=== PATIENT | male | born 1975 | race Caucasian/White ===

== ENCOUNTER 2016-11-17 18:10 | Emergency (ER) | payer OTHER ==
--- NOTE | 2016-11-17 18:52 | ED NURSING NOTES ---
Clinical Report - Nurses [facility] [place] [address] 11/17/2016 18:11 Patient: MELISA SOLIS TRIAGE Triage time 18:19. Acuity: LEVEL 4. Chief Complaint: Location of symptoms- left knee. 18:20 11/17/16. 18:20 11/17/16. Alert. SEPSIS SCREEN: Sepsis Screen. Negative (no infection suspected/documented). GAVIOTA COMA SCORE: [place] Coma Scale: 15- eyes open spontaneously (4); best verbal response- oriented x 4 (5); best motor response- obeys commands (6). --18:26 Albin Roman R.N. 18:22 11/17/16. BP: 144/96. HR: 84. RR: 16. O2 saturation: 100% on room air. Temp: 98.1 F (oral). Pain level now: 8/10. --18:26 Albin Roman R.N. Weight: 70.7 kg stated. Height/Length: 71 inches Per Patient. BMI: 21.7. --18:18 Albin Roman R.N. Medications None. --18:20 Albin Roman R.N. Medication/allergy information source: the patient. --18:26 Albin Roman R.N. Allergies Demerol. Shellfish-derived Products. --18:20 Albin Roman R.N. History Arrived by private vehicle. Historian: patient. Unaccompanied. Primary physician (ANSLEY EDMONDS). 18:20 11/17/16. An injury may have occurred. He has had moderate trouble walking. The patient has been limping when trying to walk. PAST MEDICAL HX: No history of deep vein thrombosis or peripheral neuropathy. Tetanus immunization status is not up-to-date. Immunizations not up to date. SOCIAL HX: Current every day light tobacco smoker (cigarette)- less than 1/2 a pack per day. No alcohol use or drug use. No infectious disease exposure. ABUSE ASSESSMENT: No report of abuse. FALL RISK ASSESSMENT: Fall risk assessment completed. No fall risk identified. NUTRITIONAL RISK ASSESSMENT: The nutritional risk assessment revealed no deficiencies. FUNCTIONAL ASSESSMENT: Functional assessment: no impairments noted. LEARNING NEEDS ASSESSMENT: The learning needs assessment revealed no barriers. SKIN INTEGRITY ASSESSMENT: Skin integrity risk assessment completed. No skin integrity risk identified. --18:26 Albin Roman R.N. PROBLEMS: Vertigo. Weakness. Dizziness. Headache. Gastroesophageal Reflux. Anxiety Reaction. Bipolar Disorder. Anxiety . Migraines . Gerd. Pituitary adenoma. CAD . --18:21 Albin Roman R.N. Left Knee Chronic pain. --18:25 Albin Roman R.N. The following entry was modified by Albin Roman R.N., 18:25 <<STRICKEN ENTRY-- Left Knee Chronic pain. --18:21 Albin Roman R.N. --END STRIKE>>. ADDITIONAL SURGERIES: Adenoidectomy. Cheek, lt and orbit. . Gallbladder Surgery. Jaw, lt . Tonsillectomy. Wrist. --18:21 Albin Roman R.N. Assessment 18:11/17/16. --18:26 Albin Roman R.N. Interventions 18:19 11/17/16. 18:11/17/16. ID and allergy band on patient. To treatment room. --18: Albin Roman R.N. PHYSICAL ASSESSMENT 18:11/17/16. Ambulatory to room. GENERAL / NEURO / PSYCH: Oriented X 4. Alert. Appears in pain. EXTREMITIES: Extremity pulses are within normal limits. Abnormal gait. Neuro-vascular status intact to the extremity. Left knee: tenderness. SKIN: Skin is warm and dry. --18:22 Albin Roman R.N. NURSING PROGRESS NOTES 18:11/17/16. Patient gowned. Reassurance given. Two patient identifiers checked. Call light placed in reach. Side rails up x 2. Bed placed in lowest position. Brakes of bed on. Brakes of chair on. --18:22 Albin Roman R.N. 18:11/17/16. Patient ready for evaluation- chart flagged and notification provided. --18:22 Albin Roman R.N. DISPOSITION / DISCHARGE Departure time: 19:00 Nov 17 2016. ( Heladio wrap applied, cms intact before and after procedure.). --19:00 Noman Macias R.N. 19:02 11/17/16. Condition at departure: improved. The goals identified in the patient's plan of care were met. No learning barriers present. Discharge instructions provided and reviewed with the patient. Reviewed warnings. Reviewed medication(s). Treatments reviewed. Reviewed referral to an orthopedic surgeon. Patient verbalized understanding. Written instructions provided in Upper Sorbian. The patient was discharged by the physician coding assistant. He was discharged home and accompanied by patient transportation driver. He left the Emergency Department ambulatory and via private vehicle. Sprinkling System Irrigator driving. FALL RISK ASSESSMENT: Fall risk assessment completed. No fall risk identified. --19:02 Albin Roman R.N. 19:01 11/17/16. BP: 132/79. HR: 82. RR: 14. O2 saturation: 100% on room air. Temp: 98.1 F (oral). --19:02 Albin Roman R.N. 19:02 11/17/16. Departure time: 19:02. --19:02 Albin Roman R.N. Locked/Released at 11/17/2016 19:03 by Albin Roman R.N.
--- NOTE | 2016-11-17 18:52 | ED CLINICAL REPORT ---
Clinical Report - Physicians/Mid Levels [facility] [address] [place] [place] [address] 11/17/2016 18:11 [id number] Time Seen: 18:19 Nov 17 2016. Arrived- By private vehicle. Historian- patient. HISTORY OF PRESENT ILLNESS Chief Complaint: Injury to left knee. The injury happened just prior to arrival. Occurred at home. Patient is experiencing mild pain. Patient denies injury to the head or neck. (Patient reports possible twisting injury of the last 2 days, now with pain to the left knee. Denies any history of DVT or PE. Denies fevers or chills. Has been ambulatory.). REVIEW OF SYSTEMS No tingling or skin laceration. He has no pain on weight bearing. All systems otherwise negative, except as recorded above. PAST HISTORY ( Pituitary ca dx 2011(monitoring at )). He has not had a prior injury to the same area. SOCIAL HISTORY Smoker- current status unknown. No alcohol use or drug use. ADDITIONAL NOTES The nursing notes have been reviewed. PHYSICAL EXAM Vital Signs: 11/17/2016 18:22 BP: 144/96. HR: 84. RR: 16. O2 saturation: 100%. Temp: 98.1 F. Pain level now: 8/10. Appearance: Alert. Head: Head atraumatic. ENT: Ears normal. Nose normal. Neck: Normal inspection. CVS: Normal heart rate and rhythm. Heart sounds normal. Respiratory: No respiratory distress. Breath sounds normal. No decreased air movement or accessory muscle use. Abdomen: No visible injury. Soft. Back: Normal inspection. No tenderness. Skin: Skin warm. Normal skin color. Extremities: Left thigh. No tenderness or swelling. Left knee: mild tenderness. No swelling or laceration. Left leg. No tenderness or swelling. Gait: Limping gait. Neuro, Vascular and Tendons: Vascular status intact. Motor intact. Neuro: Oriented X 3. No motor deficit. LABS, X-RAYS, AND EKG Lt Knee X-ray: (IMPRESSION: 1. Normal left knee. Electronically Final signed by:Rishabh Cleveland MD 11/17/2016 7:10:35 PM). Note - Tests: (left us vENOUS: IMPRESSION: 1. Negative venous ultrasound of the left lower extremity. Electronically Final signed by:Rishabh Cleveland MD 11/17/2016 7:09:19 PM). PROGRESS AND PROCEDURES PROCEDURES (LEFT KNEE AMANDA WRAP). Course of Care: no signs of dvt, no signs of cellulitis, no signs of distress or fx. Stable to f/u outpatient. Patient is stable. Symptoms better. Patient/family counseled. Differential Diagnosis: I considered degenerative joint disease, rheumatoid arthritis, sprain, soft tissue injury and myositis as a possible cause of lower extremity pain in this patient. This is a partial list of diagnoses considered. Disposition: Discharged. CLINICAL IMPRESSION Sprain of the medial collateral and lateral collateral ligament of the left knee. INSTRUCTIONS Apply ice. Elevate affected areas above chest level. ([facility]: [phone]). Prescription Medications: Hydrocodone/APAP 5mg / 325mg: take 1 orally every 6 hours as needed for pain. Dispense ten (10). Ibuprofen 800 mg tablets: take 1 tablet orally every 8 hours for 5 days, as needed for pain. Dispense fifteen (15). No refill. (Electronically signed by Salma Cain P.A.-C 11/17/2016 21:17)
--- NOTE | 2016-11-17 18:52 | ED CLINICAL REPORT ---
Clinical Report - Physicians/Mid Levels [facility] [address] [place] [address] 11/17/2016 18:11 [id number] Time Seen: 18:19 Nov 17 2016. Arrived- By private vehicle. Historian- patient. HISTORY OF PRESENT ILLNESS Chief Complaint: Injury to left knee. The injury happened just prior to arrival. Occurred at home. Patient is experiencing mild pain. Patient denies injury to the head or neck. (Patient reports possible twisting injury of the last 2 days, now with pain to the left knee. Denies any history of DVT or PE. Denies fevers or chills. Has been ambulatory.). REVIEW OF SYSTEMS No tingling or skin laceration. He has no pain on weight bearing. All systems otherwise negative, except as recorded above. PAST HISTORY ( Pituitary ca dx 2011(monitoring at )). He has not had a prior injury to the same area. SOCIAL HISTORY Smoker- current status unknown. No alcohol use or drug use. ADDITIONAL NOTES The nursing notes have been reviewed. PHYSICAL EXAM Vital Signs: 11/17/2016 18:22 BP: 144/96. HR: 84. RR: 16. O2 saturation: 100%. Temp: 98.1 F. Pain level now: 8/10. Appearance: Alert. Head: Head atraumatic. ENT: Ears normal. Nose normal. Neck: Normal inspection. CVS: Normal heart rate and rhythm. Heart sounds normal. Respiratory: No respiratory distress. Breath sounds normal. No decreased air movement or accessory muscle use. Abdomen: No visible injury. Soft. Back: Normal inspection. No tenderness. Skin: Skin warm. Normal skin color. Extremities: Left thigh. No tenderness or swelling. Left knee: mild tenderness. No swelling or laceration. Left leg. No tenderness or swelling. Gait: Limping gait. Neuro, Vascular and Tendons: Vascular status intact. Motor intact. Neuro: Oriented X 3. No motor deficit. LABS, X-RAYS, AND EKG Lt Knee X-ray: (IMPRESSION: 1. Normal left knee. Electronically Final signed by:Rishabh Cleveland MD 11/17/2016 7:10:35 PM). Note - Tests: (left us vENOUS: IMPRESSION: 1. Negative venous ultrasound of the left lower extremity. Electronically Final signed by:Rishabh Cleveland MD 11/17/2016 7:09:19 PM). PROGRESS AND PROCEDURES PROCEDURES (LEFT KNEE AMANDA WRAP). Course of Care: no signs of dvt, no signs of cellulitis, no signs of distress or fx. Stable to f/u outpatient. Patient is stable. Symptoms better. Patient/family counseled. Differential Diagnosis: I considered degenerative joint disease, rheumatoid arthritis, sprain, soft tissue injury and myositis as a possible cause of lower extremity pain in this patient. This is a partial list of diagnoses considered. Disposition: Discharged. CLINICAL IMPRESSION Sprain of the medial collateral and lateral collateral ligament of the left knee. INSTRUCTIONS Apply ice. Elevate affected areas above chest level. ([facility]: [phone]). Prescription Medications: Hydrocodone/APAP 5mg / 325mg: take 1 orally every 6 hours as needed for pain. Dispense ten (10). Ibuprofen 800 mg tablets: take 1 tablet orally every 8 hours for 5 days, as needed for pain. Dispense fifteen (15). No refill. (Electronically signed by Salma Cain P.A.-C 11/17/2016 21:17)
--- NOTE | 2016-11-17 18:52 | ED ORDER SUMMARY ---
..... Patient: MELISA SOLIS OrderSheet [facility] VisitID: [id number] [address] [place] [address] 41y, M Registration Date/Time: 11/17/2016 ORDER SHEET Weight: 70.7 kg (stated) Allergies: Demerol, Shellfish-derived Products GENERAL ORDERS: Knee 4V Left Urgent (18:23 11/17/2016 EKoroleva P.A.-C) (Ack 18:33 LTapper) (18:47 JBoardley R.N.) US Venous Left Urgent (18:23 11/17/2016 EKoroleva P.A.-C) (Ack 18:33 LTapper) (18:47 JBoardley R.N.) Heladio Wrap (L. KNEE) (18:51 11/17/2016 EKoroleva P.A.-C) (19:00 DBeyer R.N.) MEDICATION ORDERS: IV FLUIDS: ORDER SHEET NOTES: [Electronically signed by Albin Roman R.N. (19:03 11/17/2016)] [Electronically signed by Salma Cain P.A.-C (21:17 11/17/2016)] [Electronically locked/signed by Albin Roman R.N. (19:03 11/17/2016)]
--- NOTE | 2016-11-17 18:52 | ED ORDER SUMMARY ---
..... Patient: MELISA SOLIS OrderSheet [facility] VisitID: [id number] [address] [place] [address] 41y, M Registration Date/Time: 11/17/2016 ORDER SHEET Weight: 70.7 kg (stated) Allergies: Demerol, Shellfish-derived Products GENERAL ORDERS: Knee 4V Left Urgent (18:23 11/17/2016 EKoroleva P.A.-C) (Ack 18:33 LTapper) (18:47 JBoardley R.N.) US Venous Left Urgent (18:23 11/17/2016 EKoroleva P.A.-C) (Ack 18:33 LTapper) (18:47 JBoardley R.N.) Heladio Wrap (L. KNEE) (18:51 11/17/2016 EKoroleva P.A.-C) (19:00 DBeyer R.N.) MEDICATION ORDERS: IV FLUIDS: ORDER SHEET NOTES: [Electronically signed by Albin Roman R.N. (19:03 11/17/2016)] [Electronically signed by Salma Cain P.A.-C (21:17 11/17/2016)] [Electronically locked/signed by Albin Roman R.N. (19:03 11/17/2016)]
--- NOTE | 2016-11-17 18:52 | ED NURSING NOTES ---
Clinical Report - Nurses [facility] [place] [address] 11/17/2016 18:11 Patient: MELISA SOLIS TRIAGE Triage time 18:19. Acuity: LEVEL 4. Chief Complaint: Location of symptoms- left knee. 18:20 11/17/16. 18:20 11/17/16. Alert. SEPSIS SCREEN: Sepsis Screen. Negative (no infection suspected/documented). GAVIOTA COMA SCORE: [place] Coma Scale: 15- eyes open spontaneously (4); best verbal response- oriented x 4 (5); best motor response- obeys commands (6). --18:26 Albin Roman R.N. 18:22 11/17/16. BP: 144/96. HR: 84. RR: 16. O2 saturation: 100% on room air. Temp: 98.1 F (oral). Pain level now: 8/10. --18:26 Albin Roman R.N. Weight: 70.7 kg stated. Height/Length: 71 inches Per Patient. BMI: 21.7. --18:18 Albin Roman R.N. Medications None. --18:20 Albin Roman R.N. Medication/allergy information source: the patient. --18:26 Albin Roman R.N. Allergies Demerol. Shellfish-derived Products. --18:20 Albin Roman R.N. History Arrived by private vehicle. Historian: patient. Unaccompanied. Primary physician (ANSLEY EDMONDS). 18:20 11/17/16. An injury may have occurred. He has had moderate trouble walking. The patient has been limping when trying to walk. PAST MEDICAL HX: No history of deep vein thrombosis or peripheral neuropathy. Tetanus immunization status is not up-to-date. Immunizations not up to date. SOCIAL HX: Current every day light tobacco smoker (cigarette)- less than 1/2 a pack per day. No alcohol use or drug use. No infectious disease exposure. ABUSE ASSESSMENT: No report of abuse. FALL RISK ASSESSMENT: Fall risk assessment completed. No fall risk identified. NUTRITIONAL RISK ASSESSMENT: The nutritional risk assessment revealed no deficiencies. FUNCTIONAL ASSESSMENT: Functional assessment: no impairments noted. LEARNING NEEDS ASSESSMENT: The learning needs assessment revealed no barriers. SKIN INTEGRITY ASSESSMENT: Skin integrity risk assessment completed. No skin integrity risk identified. --18:26 Albin Roman R.N. PROBLEMS: Vertigo. Weakness. Dizziness. Headache. Gastroesophageal Reflux. Anxiety Reaction. Bipolar Disorder. Anxiety . Migraines . Gerd. Pituitary adenoma. CAD . --18:21 Albin Roman R.N. Left Knee Chronic pain. --18:25 Albin Roman R.N. The following entry was modified by Albin Roman R.N., 18:25 <<STRICKEN ENTRY-- Left Knee Chronic pain. --18:21 Albin Roman R.N. --END STRIKE>>. ADDITIONAL SURGERIES: Adenoidectomy. Cheek, lt and orbit. . Gallbladder Surgery. Jaw, lt . Tonsillectomy. Wrist. --18:21 Albin Roman R.N. Assessment 18:11/17/16. --18:26 Albin Roman R.N. Interventions 18:19 11/17/16. 18:11/17/16. ID and allergy band on patient. To treatment room. --18: Albin Roman R.N. PHYSICAL ASSESSMENT 18:11/17/16. Ambulatory to room. GENERAL / NEURO / PSYCH: Oriented X 4. Alert. Appears in pain. EXTREMITIES: Extremity pulses are within normal limits. Abnormal gait. Neuro-vascular status intact to the extremity. Left knee: tenderness. SKIN: Skin is warm and dry. --18:22 Albin Roman R.N. NURSING PROGRESS NOTES 18:11/17/16. Patient gowned. Reassurance given. Two patient identifiers checked. Call light placed in reach. Side rails up x 2. Bed placed in lowest position. Brakes of bed on. Brakes of chair on. --18:22 Albin Roman R.N. 18:11/17/16. Patient ready for evaluation- chart flagged and notification provided. --18:22 Albin Roman R.N. DISPOSITION / DISCHARGE Departure time: 19:00 Nov 17 2016. ( Heladio wrap applied, cms intact before and after procedure.). --19:00 Noman Macias R.N. 19:02 11/17/16. Condition at departure: improved. The goals identified in the patient's plan of care were met. No learning barriers present. Discharge instructions provided and reviewed with the patient. Reviewed warnings. Reviewed medication(s). Treatments reviewed. Reviewed referral to an orthopedic surgeon. Patient verbalized understanding. Written instructions provided in Turkmen. The patient was discharged by the physician assistant portfolio manager. He was discharged home and accompanied by informatica mdm developer. He left the Emergency Department ambulatory and via private vehicle. Security Alarm Technician driving. FALL RISK ASSESSMENT: Fall risk assessment completed. No fall risk identified. --19:02 Albin Roman R.N. 19:01 11/17/16. BP: 132/79. HR: 82. RR: 14. O2 saturation: 100% on room air. Temp: 98.1 F (oral). --19:02 Albin Roman R.N. 19:02 11/17/16. Departure time: 19:02. --19:02 Albin Roman R.N. Locked/Released at 11/17/2016 19:03 by Albin Roman R.N.
--- NOTE | 2016-11-17 19:09 | DIAGNOSTIC IMAGING REPORT ---
PROCEDURE: US VENOUS - LEFT EXT INDICATION: Left lower extremity pain. TECHNIQUE: Duplex sonography of the deep venous system in the left lower extremity was performed. Compression and augmentation techniques were used. COMPARISON: None. FINDINGS: Normal compression of the greater saphenous, common femoral, superficial femoral, popliteal, peroneal, and posterior tibial veins. Normal augmentation. There is no evidence of superficial or deep venous thrombosis. IMPRESSION: 1. Negative venous ultrasound of the left lower extremity.
--- NOTE | 2016-11-17 19:10 | DIAGNOSTIC IMAGING REPORT ---
PROCEDURE: XR KNEE 4 VIEWS - LEFT INDICATION: PAIN TECHNIQUE: Four views. COMPARISON: None. FINDINGS: Osseous structures and joint spaces are normal. No effusion. IMPRESSION: 1. Normal left knee.
--- NOTE | 2016-11-17 21:17 | ED MAR SUMMARY ---
..... Medication Administration Record [facility] [address] [place] [address] Patient: MELISA SOLIS Visit ID: [id number] 41y, M Weight: 70.7 kg Height/Length: 71 in BMI: 21.7 ALLERGIES: Demerol, Shellfish-derived Products
--- NOTE | 2016-11-17 21:17 | ED MAR SUMMARY ---
..... Medication Administration Record [facility] [address] [place] [address] Patient: MELISA SOLIS Visit ID: [id number] 41y, M Weight: 70.7 kg Height/Length: 71 in BMI: 21.7 ALLERGIES: Demerol, Shellfish-derived Products
--- NOTE | 2016-11-17 21:17 | ED MED RECONCILIATION SUMMARY ---
Patient: MELISA SOLIS Medication Reconciliation Report [facility] VisitID: [id number] [address] [place] [address] 41y, M Registration Date/Time: 11/17/2016 Weight: 70.7 kg Height/Length: 71 in. BMI: 21.7 ALLERGIES: Demerol, Shellfish-derived Products The patient's Home Medications are listed below: NONE. The source(s) of the original Home Medication information: patient The following Medications were given to the patient in the Emergency Department: None. The following Medications were prescribed to the patient: Hydrocodone/APAP 5mg / 325mg: take 1 orally every 6 hours as needed for pain. Dispense ten (10). -- Salma Cain, P.A.-C Ibuprofen 800 mg tablets: take 1 tablet orally every 8 hours for 5 days, as needed for pain. Dispense fifteen (15). No refill. -- Salma Cain, P.A.-C
--- NOTE | 2016-11-17 21:17 | ED MED RECONCILIATION SUMMARY ---
Patient: MELISA SOLIS Medication Reconciliation Report [facility] VisitID: [id number] [address] [place] [address] 41y, M Registration Date/Time: 11/17/2016 Weight: 70.7 kg Height/Length: 71 in. BMI: 21.7 ALLERGIES: Demerol, Shellfish-derived Products The patient's Home Medications are listed below: NONE. The source(s) of the original Home Medication information: patient The following Medications were given to the patient in the Emergency Department: None. The following Medications were prescribed to the patient: Hydrocodone/APAP 5mg / 325mg: take 1 orally every 6 hours as needed for pain. Dispense ten (10). -- Salma Cain, P.A.-C Ibuprofen 800 mg tablets: take 1 tablet orally every 8 hours for 5 days, as needed for pain. Dispense fifteen (15). No refill. -- Salma Cain, P.A.-C
--- NOTE | 2016-11-17 21:17 | ED DISCHARGE INSTRUCTIONS ---
Patient: MELISA SOLIS General Instructions [facility] VisitID: [id number] [place] [address] 41y, M Registration Date/Time: 11/17/2016 Sprain of the medial collateral and lateral collateral ligament of the left knee. INSTRUCTIONS Apply ice. Elevate affected areas above chest level. ([facility]: [phone]). Prescription Medications: Hydrocodone/APAP 5mg / 325mg: take 1 orally every 6 hours as needed for pain. Dispense ten (10). Ibuprofen 800 mg tablets: take 1 tablet orally every 8 hours for 5 days, as needed for pain. Dispense fifteen (15). No refill. ADDITIONAL INFORMATION Sprain, Knee A sprain is an injury to the ligaments or capsule that holds a joint together. There are no broken bones. Most sprains take three to six weeks to heal. If the ligament is completely torn (severe sprain), it can take months to recover from. Most knee sprains are treated with a splint, knee immobilizer or elastic wrap for support. Severe sprains may require surgery. Home care The following guidelines will help you care for your injury at home: Stay off the injured leg as much as possible until you can walk on it without pain. If you have a lot of pain with walking, crutches or a walker may be prescribed. (These can be rented or purchased at many pharmacies and surgical or orthopedic supply stores). Follow your doctor's advice regarding when to begin bearing weight on that leg. Keep your leg elevated to reduce pain and swelling. When sleeping, place a pillow under the injured leg. When sitting, support the injured leg so it is level with your waist. This is very important during the first 48 hours. Apply an ice pack (ice cubes in a plastic bag, wrapped in a towel) over the injured area for 20 minutes every 12 hours the first day. You can place the ice pack directly over the splint. If a Velcro knee immobilizer was applied, you can open this to apply the ice pack directly to the knee. Continue with ice packs 34 times a day for the next two days, then as needed for the relief of pain and swelling. You may use acetaminophen or ibuprofen to control pain, unless another pain medicine was prescribed. If you have chronic liver or kidney disease or ever had a stomach ulcer or GI bleeding, talk with your doctor before using these medicines. If you were given a splint, keep it completely dry at all times. Bathe with your splint out of the water, protected with a large plastic bag, rubber-banded at the top end. If a fiberglass splint gets wet, you can dry it with a hair-dryer. If you have a Velcro knee immobilizer, you can remove this to bathe, unless told otherwise. Follow-up care Follow up with your doctor as advised. Any X-rays you had today dont show any broken bones, breaks, or fractures. Sometimes fractures dont show up on the first X-ray. Bruises and sprains can sometimes hurt as much as a fracture. These injuries can take time to heal completely. If your symptoms dont improve or they get worse, talk with your doctor. You may need a repeat X-ray. When to seek medical care Get prompt medical attention if any of the following occur: The plaster cast or splint becomes wet or soft The fiberglass cast or splint remains wet for more than 24 hours Pain or swelling increases Toes become cold, blue, numb or tingly You have been given the following additional information: Knee Sprain (Electronically signed by Salma Cain P.A.-C 11/17/2016 21:17)
== END 2016-11-17 19:02 | disposition home or self-care (01) ==
LOC: ED SRH 18:10
DX: S83.412A Sprain of medial collateral ligament of left knee, initial encounter (principal); S83.422A Sprain of lateral collateral ligament of left knee, initial encounter; X50.0XXA Overexertion from strenuous movement or load, initial encounter; Y93.9 Activity, unspecified; Y92.009 Unspecified place in unspecified non-institutional (private) residence as the place of occurrence of the external cause; Y99.9 Unspecified external cause status; K21.9 Gastro-esophageal reflux disease without esophagitis; F17.210 Nicotine dependence, cigarettes, uncomplicated; Z88.5 Allergy status to narcotic agent

== ENCOUNTER → 2016-12-11 | Outpatient (CLI) | payer OTHER ==
--- NOTE | 2016-12-11 11:35 | DIAGNOSTIC IMAGING REPORT ---
PROCEDURE: MR LOWER EXT JOINT WO CONT-LT INDICATION: LEFT KNEE PAIN TECHNIQUE: PD and FAT-SAT PD sagittal and coronal images. FAT-SAT PD axial images. High-resolution T2 sagittal images of the cruciate ligaments. (Total of 6 sequences). COMPARISON: Left knee x-ray 11/17/2016 FINDINGS: Normal cruciate and collateral ligaments. 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 Normal lateral meniscus. Normal quadriceps and patellar tendons. Normal articular cartilage. 1 cm popliteal cyst. No effusion. Patellar bone islands. IMPRESSION: 1. 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 1 cm popliteal cyst.
== END ==
LOC: MRI SRH 08:44
DX: M17.12 Unilateral primary osteoarthritis, left knee (principal); M71.22 Synovial cyst of popliteal space [Baker], left knee